=== PATIENT | female | born 1950 | race African-American/Black ===

== ENCOUNTER 2017-01-24 07:18 | Emergency (ER) | payer MEDICARE, MEDICAID ==
[~2017-01-24] VITALS: Ht 154.9 cm; Wt 59.0 kg
[~2017-01-24 07:18] MED LIST: ATOR20TA; ATOR20TA65 PO; BRIM5DRO; DORZOLAMIDE; ESTR0.3T3; IBAN150T4; IBAN150T9 PO; NAPH15DR14; NAPROXEN; SULF15DR26; VALS1TAB72 PO; boniva; diovan
[2017-01-24 09:41] VITALS: BP 151/79
== END 2017-01-24 09:43 | disposition home or self-care (01) ==
LOC: ER 09:07
DX: S40.011A Contusion of right shoulder, initial encounter (principal); Z79.899 Other long term (current) drug therapy; M19.90 Unspecified osteoarthritis, unspecified site; E78.00 Pure hypercholesterolemia, unspecified; I10 Essential (primary) hypertension; H40.9 Unspecified glaucoma; W01.0XXA Fall on same level from slipping, tripping and stumbling without subsequent striking against object, initial encounter; Y93.89 Activity, other specified; Y99.9 Unspecified external cause status; Y92.89 Other specified places as the place of occurrence of the external cause
CPT/HCPCS: 73030; 73080; 99284; A4565

== ENCOUNTER 2018-10-07 14:40 | Emergency (ER) | payer MEDICARE, MEDICAID ==
[~2018-10-07] VITALS: Ht 154.9 cm; Wt 61.0 kg
[~2018-10-07 14:40] MED LIST changes: +IBAN150T; -IBAN150T4
[2018-10-07 20:01] VITALS: BP 178/98
== END 2018-10-07 20:12 | disposition home or self-care (01) ==
LOC: ER 14:40
DX: M25.562 Pain in left knee (principal); M25.561 Pain in right knee; M25.511 Pain in right shoulder; M19.90 Unspecified osteoarthritis, unspecified site; E78.00 Pure hypercholesterolemia, unspecified; I10 Essential (primary) hypertension; Z98.1 Arthrodesis status; Z90.710 Acquired absence of both cervix and uterus; Z96.659 Presence of unspecified artificial knee joint
CPT/HCPCS: 99283

== ENCOUNTER 2019-02-09 18:09 | Emergency (ER) | payer MEDICARE, MEDICAID ==
[~2019-02-09] VITALS: Ht 165.1 cm; Wt 68.0 kg
[~2019-02-09 18:09] MED LIST changes: -IBAN150T; +IBAN150T16
[2019-02-09] MEDS ORDERED: IBUPROFEN 600MG TABLET PO ONE (21:30)
[2019-02-09 22:44] VITALS: BP 170/89
== END 2019-02-09 22:44 | disposition home or self-care (01) ==
LOC: ER 21:06
DX: M25.562 Pain in left knee (principal); M25.561 Pain in right knee; I10 Essential (primary) hypertension; M17.0 Bilateral primary osteoarthritis of knee; V49.49XA Driver injured in collision with other motor vehicles in traffic accident, initial encounter; Y93.89 Activity, other specified; Y92.410 Unspecified street and highway as the place of occurrence of the external cause
CPT/HCPCS: 73562; 99283

== ENCOUNTER 2022-10-31 12:00 | Emergency (ER) | payer BC, MEDICAID ==
[~2022-10-31] VITALS: Ht 167.6 cm; Wt 75.0 kg
[~2022-10-31 12:00] MED LIST changes: +IBAN150T21 PO; -IBAN150T9 PO
[2022-10-31] MEDS ORDERED: KETOROLAC 60MG/2ML VIAL IM ONE (14:45)
[2022-10-31 15:20] VITALS: BP 183/106
[2022-10-31] MEDS ORDERED: MELO-105 MT (15:35)
== END 2022-10-31 16:16 | disposition home or self-care (01) ==
LOC: ER 12:00
DX: M17.0 Bilateral primary osteoarthritis of knee (principal); M25.512 Pain in left shoulder; I10 Essential (primary) hypertension; E78.00 Pure hypercholesterolemia, unspecified; Z79.899 Other long term (current) drug therapy
CPT/HCPCS: 73030; 73560; 96372; 99284; J1885

== ENCOUNTER 2025-01-05 11:32 | Emergency (ER) | payer BC, MEDICAID, MEDICARE ==
[~2025-01-05] VITALS: Ht 154.9 cm; Wt 57.0 kg
[~2025-01-05 11:32] MED LIST changes: +MELO-105 MT
[2025-01-05 11:49] VITALS: O2SAT 98
[2025-01-05] MEDS: DICLOFENAC SODIUM 1% GEL 50GM TOP SCH (13:12)
[2025-01-05 13:49] VITALS: BP 152/77; PULSE 71; RESP 18; TEMP 37.1; O2SAT 98
== END 2025-01-05 14:10 | disposition home or self-care (01) ==
LOC: ER 11:32
DX: M19.012 Primary osteoarthritis, left shoulder (principal); I10 Essential (primary) hypertension; E78.00 Pure hypercholesterolemia, unspecified; Z90.710 Acquired absence of both cervix and uterus; Z96.659 Presence of unspecified artificial knee joint; Z79.899 Other long term (current) drug therapy
CPT/HCPCS: 73030; 99283